=== PATIENT | female | born 2000 | race Caucasian/White ===

== ENCOUNTER 2022-02-09 15:44 | Emergency (ER) | payer MEDICAID ==
[~2022-02-09] VITALS: Ht 165.1 cm; Wt 80.5 kg
[2022-02-09] MEDS ORDERED: PRENATAL TABLET PO (16:17)
[2022-02-09] MEDS ORDERED: ZOFRAN 4MG T4 MG/TAB PO (16:18)
[2022-02-09 16:38] LABS: COLLECTION METHOD CLEAN CATCH
[2022-02-09 16:45] LABS: PH 8 (5-8); URINE APPEARANCE Hazy (CLEAR/HAZY); URINE BACTERIA Rare /hpf (NONE SEEN); URINE BILIRUBIN Negative (NEGATIVE); URINE BLOOD 1+ (NEGATIVE); URINE COLOR Yellow (YELLOW); URINE GLUCOSE Negative (NEGATIVE); URINE KETONE Negative (NEGATIVE); URINE LEUKOCYTE ESTERASE 3+ (NEGATIVE); URINE NITRATE Negative (NEGATIVE); URINE PROTEIN(semi-quant) Negative (NEGATIVE); URINE RBC 0-2 /hpf (0-2); URINE UROBILINOGEN Negative (NEGATIVE)
[2022-02-09 17:27] LABS: BASO % 0.2 % (0.0-2.0); GRAN # 8.2 K/mm3 (1.4-6.5); GRAN % 83.8 % (42.2-75.2); HEMATOCRIT 32.8 % (37.0-47.0); HEMOGLOBIN 11.1 g/dl (12.5-16.0); LYMPH % 9.7 % (20.0-51.0); MEAN CELL VOLUME 81 fl (80.0-100.0); MEAN CORPUSCULAR HEMOGLOBIN 27 pg (27-31); MEAN CORPUSCULAR HGB CONC 34 g/dl (33.0-37.0); MEAN PLATELET VOLUME 12.6 fl (7.4-10.4); MONO # 0.6 K/mm3 (0.1-0.6); MONO % 5.7 % (1.7-9.3); PLATELET COUNT 180 K/mm3 (130-400); RED BLOOD COUNT 4.06 M/mm3 (4.10-5.30); REDCELL DISTRIBUTION WIDTH-CV 14.1 % (11.5-14.5)
[2022-02-09 17:39] LABS: ALBUMIN 3.4 gm/dL (3.5-5.0); BILIRUBIN,TOTAL 0.4 mg/dL (0.2-1.2); CALCIUM 8.6 mg/dL (8.4-10.2); CREATININE, serum 0.58 mg/dL (0.57-1.11); POTASSIUM 3.4 mmol/L (3.5-4.5); TOTAL PROTEIN 7.3 gm/dL (6.2-8.1)
[2022-02-09 18:15] VITALS: BP 100/62; PULSE 80; TEMP 98.1
== END 2022-02-09 18:15 | disposition home or self-care (01) ==
LOC: COL.ER 15:44
PROVIDERS: Nurse Practitioner Primary Care
DX: O99.891 Other specified diseases and conditions complicating pregnancy (principal); M54.50 Low back pain, unspecified; Z3A.18 18 weeks gestation of pregnancy; Z28.310 Unvaccinated for COVID-19
CPT/HCPCS: J7030

== ENCOUNTER 2022-06-25 11:23 | Outpatient (CLI) | payer MEDICAID ==
[~2022-06-25] VITALS: Ht 165.1 cm; Wt 90.0 kg
[~2022-06-25 11:23] MED LIST: PRENATAL TABLET PO; ZOFRAN 4MG T4 MG/TAB PO
--- NOTE | 2022-06-25 11:30 | NUR ---
1130-G2L1 38[age][address] Garcia sent over from office directly after non reactive NST in office. Patient arrives to Triage room 1, oriented and assisted to gown and placed on EFM. FHR Category I, apple juice provided. Assessment complete. Updated on plan of care.
[2022-06-25] MEDS ORDERED: ZOFRAN 4MG T4 MG/TAB PO (11:51)
[2022-06-25] MEDS ORDERED: BENADRYL25 M2 PO (11:52)
[2022-06-25 12:00] VITALS: BP 109/64; PULSE 67; TEMP 97.9
[2022-06-25 13:00] VITALS: BP 109/62; PULSE 83
--- NOTE | 2022-06-25 13:18 | NUR ---
1318-SVE by Gaby, //H and posterior. Patient tracing irregular contractions. Reports "they are a litte painful" and noticed holding her breath and moving through occasionally. Patient reports "they aren't worse than they have been off and on." Dr. Adkins notifed. Orders recieved to start IV and give 1 liter LR bolus and continue to monitor.
[2022-06-25 14:00] VITALS: BP 111/63; PULSE 76
[2022-06-25 15:00] VITALS: BP 109/56; PULSE 76
--- NOTE | 2022-06-25 15:00 | NUR ---
1500-Dr. Adkins updated IVF bolus finished. Reviewed strip and SVE unchanged. Orders recieved to discharge patient home. See MD notification. 1524-Patient ambulatory off unit with significant other.
[2022-07-01] MEDS ORDERED: PERCOCET 325 MG1 TA2 PO (08:49)
[2022-07-01] MEDS ORDERED: IBU800 M1 PO (08:49)
== END 2022-06-25 15:24 | disposition home or self-care (01) ==
LOC: LDRO 11:23
DX: Z34.93 Encounter for supervision of normal pregnancy, unspecified, third trimester (principal); Z3A.38 38 weeks gestation of pregnancy
CPT/HCPCS: J7120